=== PATIENT | female | born 1935 | race Caucasian/White ===

== ENCOUNTER → 2017-03-28 14:25 | Outpatient (CLI) | payer MEDICARE, OTHER, SELFPAY ==
[2017-03-28 14:51] LABS: Basophils % 0.3 % (0.1-2.0); Eosinophils # 0.2 K/mm3 (0.0-0.4); Eosinophils % 2.5 % (0.1-12.0); Hematocrit 39.6 % (37.0-47.0); Hemoglobin 12.5 g/dL (12.2-16.2); Lymphocytes # 1.2 K/mm3 (0.7-4.5); Lymphocytes % 18.4 K/mm3 (10-50); Mean Corpuscular HGB Conc 31.6 g/dL (31.8-35.4); Mean Corpuscular Hemoglobin 31.1 pg (27.0-31.2); Mean Corpuscular Volume 98.3 fl (81-99); Mean Platelet Volume 7.8 fl (7.4-10.4); Monocytes # 0.3 K/mm3 (0.1-1.0); Monocytes % 5.3 % (1.7-9.3); Neutrophils # 4.8 K/mm3 (1.8-7.8); Neutrophils % 73.6 % (37.0-80.0); Platelet Count 243 K/mm3 (142-424); Red Blood Count 4.03 M/mm3 (4.20-5.40); Red Cell Distribution Width 14.4 % (11.5-17.5); White Blood Count 6.5 K/mm3 (4.8-10.8)
[2017-03-28 15:54] LABS: Albumin Level 2.8 gm/dL (3.4-5.0); Anion Gap 11.1 mEq/L (5-15); Blood Urea Nitrogen 52 mg/dL (7-18); Calcium 9.8 mg/dL (8.5-10.1); Carbon Dioxide 34 mmol/L (21.0-32.0); Chloride 103 mmol/L (98-107); Creatinine,Serum 2.69 mg/dL (0.55-1.02); Estimated Glomerular Filt Rate 17 ml/min (>60); GFR (African American) 21 ML/MIN (>60); Glucose 78 mg/dL (74-106); Phosphorous 4.8 mg/dL (2.4-4.9); Potassium 4.1 mmoL/L (3.5-5.1); Sodium 144 mmol/L (136-145)
== END ==
PROVIDERS: Visit Provider Internal Medicine Nephrology
DX: N18.4 Chronic kidney disease, stage 4 (severe) (principal)
CPT/HCPCS: 36415; 80069; 85025

== ENCOUNTER 2017-05-07 09:10 | Inpatient (IN) | payer MEDICARE, OTHER, SELFPAY ==
[2017-05-07] VITALS (7 sets, daily range): BP systolic 121–135; BP diastolic 68–88; PULSE 92–120; RESP 18–20; TEMP 36.7–37.1; O2SAT 89–100; BMI 27.3; BMI 24.7
--- NOTE | 2017-05-07 09:20 | XR_ITS ---
XR chest portable Ordering Physician: Manpreet Holden MD Patient Age: 82 years: Female HISTORY: ITS.REASON: shortness of air TECHNIQUE: AP portable upright chest COMPARISON :07/26/2016 portable upright chest FINDINGS Elevation right hemidiaphragm again noted. Nothing definitely acute. No focal pneumonia. Coarsening of central markings similar to previous studies likely reflects chronic bronchitis features. Minimal linear scarring or atelectasis towards the left upper lobe peripherally . Accentuation markings right base may reflect atelectasis minor scarring is seen similar to previous studies as well. The heart is normal in size no CHF. No vascular congestion. Calcified hilar nodes and mediastinal nodes reflecting old renal this disease. Old right clavicular fracture. Nonunion. Unchanged. Postsurgical changes at the left epigastric region. IMPRESSION: Stable chest nothing definitely acute . Chronic changes.
[2017-05-07 09:50] LABS: Basophils % 0.2 % (0.1-2.0); Eosinophils % 0.4 % (0.1-12.0); Hemoglobin 9.2 g/dL (12.2-16.2); Lymphocytes # 1.1 K/mm3 (0.7-4.5); Lymphocytes % 20.1 K/mm3 (10-50); Mean Corpuscular HGB Conc 30.7 g/dL (31.8-35.4); Mean Corpuscular Hemoglobin 32.3 pg (27.0-31.2); Mean Corpuscular Volume 105.4 fl (81-99); Mean Platelet Volume 7.6 fl (7.4-10.4); Monocytes # 0.2 K/mm3 (0.1-1.0); Monocytes % 3.5 % (1.7-9.3); Neutrophils # 4.1 K/mm3 (1.8-7.8); Neutrophils % 75.8 % (37.0-80.0); Platelet Count 267 K/mm3 (142-424); Red Blood Count 2.84 M/mm3 (4.20-5.40); Red Cell Distribution Width 15.6 % (11.5-17.5); White Blood Count 5.4 K/mm3 (4.8-10.8)
[2017-05-07 10:05] LABS: Lactic Acid 0.4 mmol/L (0.4-2.0)
[2017-05-07 10:18] LABS: Alanine Aminotransferase 20 U/L (12-78); Albumin Level 2.2 gm/dL (3.4-5.0); Albumin/Globulin Ratio 0.6 (1.1-1.8); Alkaline Phosphatase 89 U/L (46-116); Anion Gap 17.1 mEq/L (5-15); Aspartate Amino Transferase 23 U/L (15-37); Bilirubin,Total 0.3 mg/dL (0.2-1.0); Blood Urea Nitrogen 75 mg/dL (7-18); CKMB Relative Index 3.3 U/L (0-4.0); Calcium 7.8 mg/dL (8.5-10.1); Carbon Dioxide 22 mmol/L (21.0-32.0); Chloride 104 mmol/L (98-107); Creatine Kinase 66 U/L (26-192); Creatine Kinase MB 2.2 mg/ml (0.0-3.6); Creatinine Clearance Estimated 11 mL/min (0-300); Estimated Glomerular Filt Rate 11 ml/min (>60); GFR (African American) 13 ML/MIN (>60); Globulin 3.6 gm/dl (1.3-3.2); Glucose 127 mg/dL (74-106); Potassium 4.1 mmoL/L (3.5-5.1); Sodium 139 mmol/L (136-145); Total Protein,Serum 5.8 gm/dL (6.4-8.2)
[2017-05-07 10:20] LABS: Creatinine,Serum 4.03 mg/dL (0.55-1.02); Troponin I 2.16 ng/ml (0.00-0.06)
--- NOTE | 2017-05-07 10:26 | HMH.EDSOB ---
ED Disposition Clinical Impression: Pneumonia, NSTEMI (non-ST elevated myocardial infarction), Renal insufficiency, Congestive heart failure, DNR (do not resuscitate) discussion Disposition: Still a Patient Condition on Discharge: Fair Referrals: Provider,Referral, [Primary Care Provider] - - Critical Care Critical Care Time: No Attestation: On 05/07/17, the high probability of a clinically significant, sudden or life threatening deterioration of the following system(s) required my full and direct attention, intervention and personal management. The time I documented below is in addition to time spent performing reported procedures but includes the following listed in this critical care notation. Medical Decision Making - Medical Records Medical records reviewed: Yes: I reviewed the patient's medical records. Vital Signs: 05/07/17 09:11 05/07/17 09:20 Temperature 98.3 F Temperature Source Oral Pulse Rate 112 H Respiratory Rate 18 Blood Pressure [Right Arm] 123/76 Blood Pressure Mean [Right Arm] 91 Blood Pressure Source [Right Arm] Automatic Cuff Blood Pressure Position [Right Arm] Supine 02 Sat by Pulse Oximetry 99 89 L Oxygen Delivery Method Room Air Room Air - Lab Data Lab results reviewed: Yes: I reviewed the patient's lab results. Lab Results 05/07/17 09:42: WBC 5.4, RBC 2.84 L, Hgb 9.2 L, Hct 30.0 L, MCV 105.4 H, MCH 32.3 H, MCHC 30.7 L, RDW 15.6, Plt Count 267, MPV 7.6, Neut % (Auto) 75.8, Lymph % (Auto) 20.1, [place] % (Auto) 3.5, Eos % (Auto) 0.4, Baso % (Auto) 0.2, Neut # (Auto) 4.1, Lymph # (Auto) 1.1, [place] # (Auto) 0.2, Eos # (Auto) 0.0, Baso # (Auto) 0.0 05/07/17 09:42: Sodium 139, Potassium 4.1, Chloride 104, Carbon Dioxide 22, Anion Gap 17.1 H, BUN 75 H, Creatinine 4.03 H, Estimated Creat Clear 11, Estimated GFR 11 L*, Est GFR ( Amer) 13 L*, Glucose 127 H, Calcium 7.8 L, Total Bilirubin 0.3, AST 23, ALT 20, Alkaline Phosphatase 89, Total Creatine Kinase 66, CK-MB (CK-2) 2.2, CK-MB (CK-2) Rel Index 3.3, Troponin I 2.16 H, Total Protein 5.8 L, Albumin 2.2 L, Globulin 3.6 H, Albumin/Globulin Ratio 0.6 L 05/07/17 09:42: B-Natriuretic Peptide 1970 H 05/07/17 09:42: Lactic Acid 0.4 Result diagrams: 05/07/17 09:42 05/07/17 09:42 Orders (Tests/Meds): ORDERS Category Date Time Status XR chest portable Stat Exams 05/07/17 09:20 Taken Blood Culture Stat Micro 05/07/17 09:55 Received - Radiology Data #1 Image(s): Chest Image Reviewed: Yes I reviewed the patient's radiology image Preliminary Findings: Abnormal RLL and lingual infitrates. no PVC, or plmonary edema. - ECG Data Tracing #1 sinus tachycardia 104 with t wave inersion in the antyerior leads suggestive of ischemia. ECG initial impression date: 05/07/17 ECG initial impression time: 10:49 - Lucas Inquiry Pt receiving controlled substance: No Lucas was queried for this patient: No Medical Decision Making Narrative: I had a full dislocuere of her her abnormal labx and CXR to [facility] who opted for medical managment and DNR stautus. Is p[katie with Dr Quintana who accepted to admit. I spoke with Dr Hart who did not see STEMI and advised for admission and IVF Resp/SOB HPI - General Chief Complaint: Upper Respiratory Infection Stated Complaint: congestion Mode of Arrival: EMS Limitations: No Limitations Description of Symptoms (Recalled from ER Triage Doc. by RN): coughcongestion - History of Present Illness 82 yrs old WF with diabetic complications. per her , 2 days ago she developed an upper rspiratory infection in the form of cough productive of whit sputum. they called Dr Garcia who advised to give her mucinex, she did not eat or drink and she is getting worse soa, cough and diaphoresis and felt warm. she was brought for evaluation. MD Complaint: shortness of breath, cough Onset (ago): day(s) (2 days.) Severity: moderate Consistency/Duration: constant
--- NOTE | 2017-05-07 10:31 | ED_ITS ---
ED Disposition Clinical Impression: Pneumonia, NSTEMI (non-ST elevated myocardial infarction), Renal insufficiency , Congestive heart failure, DNR (do not resuscitate) discussion Disposition: Still a Patient Condition on Discharge: Fair Referrals: Provider,Referral, [Primary Care Provider] - - Critical Care Critical Care Time: No Attestation: On 05/07/17, the high probability of a clinically significant, sudden or life threatening deterioration of the following system(s) required my full and direct attention, intervention and personal management. The time I documented below is in addition to time spent performing reported procedures but includes the following listed in this critical care notation. Medical Decision Making - Medical Records Medical records reviewed: Yes: I reviewed the patient's medical records. Vital Signs: 05/07/17 09:11 05/07/17 09:20 Temperature 98.3 F Temperature Source Oral Pulse Rate 112 H Respiratory Rate 18 Blood Pressure [Right Arm] 123/76 Blood Pressure Mean [Right Arm] 91 Blood Pressure Source [Right Arm] Automatic Cuff Blood Pressure Position [Right Arm] Supine 02 Sat by Pulse Oximetry 99 89 L Oxygen Delivery Method Room Air Room Air - Lab Data Lab results reviewed: Yes: I reviewed the patient's lab results. Lab Results 05/07/17 09:42: WBC 5.4, RBC 2.84 L, Hgb 9.2 L, Hct 30.0 L, MCV 105.4 H, MCH 32.3 H, MCHC 30.7 L, RDW 15.6, Plt Count 267, MPV 7.6, Neut % (Auto) 75.8, Lymph % (Auto) 20.1, [place] % (Auto) 3.5, Eos % (Auto) 0.4, Baso % (Auto) 0.2, Neut # (Auto) 4.1, Lymph # (Auto) 1.1, [place] # (Auto) 0.2, Eos # (Auto) 0.0, Baso # (Auto) 0.0 05/07/17 09:42: Sodium 139, Potassium 4.1, Chloride 104, Carbon Dioxide 22, Anion Gap 17.1 H, BUN 75 H, Creatinine 4.03 H, Estimated Creat Clear 11, Estimated GFR 11 L*, Est GFR ( Amer) 13 L*, Glucose 127 H, Calcium 7.8 L , Total Bilirubin 0.3, AST 23, ALT 20, Alkaline Phosphatase 89, Total Creatine Kinase 66, CK-MB (CK-2) 2.2, CK-MB (CK-2) Rel Index 3.3, Troponin I 2.16 H, Total Protein 5.8 L, Albumin 2.2 L, Globulin 3.6 H, Albumin/Globulin Ratio 0.6 L 05/07/17 09:42: B-Natriuretic Peptide 1970 H 05/07/17 09:42: Lactic Acid 0.4 Result diagrams: 05/07/17 09:42 05/07/17 09:42 Orders (Tests/Meds): ORDERS Category Date Time Status XR chest portable Stat Exams 05/07/17 09:20 Taken Blood Culture Stat Micro 05/07/17 09:55 Received - Radiology Data #1 Image(s): Chest Image Reviewed: Yes I reviewed the patient's radiology image Preliminary Findings: Abnormal RLL and lingual infitrates. no PVC, or plmonary edema. - ECG Data Tracing #1 sinus tachycardia 104 with t wave inersion in the antyerior leads suggestive of ischemia. ECG initial impression date: 05/07/17 ECG initial impression time: 10:49 - Lucas Inquiry Pt receiving controlled substance: No Lucas was queried for this patient: No Medical Decision Making Narrative: I had a full dislocuere of her her abnormal labx and CXR to the [facility] who opted for medical managment and DNR stautus. Is p[katie with Dr Quintana who accepted to admit. I spoke with Dr Hart who did not see STEMI and advised for admission and IVF Resp/SOB HPI - General Chief Complaint: Upper Respiratory Infection Stated Complaint: congestion Mode of Arrival: EMS Limitations: No Limitations Descript
[2017-05-07 21:19] LABS: POC Glucose,Bedside 137 mg/dL (70-110)
[2017-05-08] VITALS (11 sets, daily range): BP systolic 113–149; BP diastolic 60–75; PULSE 90–170; RESP 18–24; TEMP 36.7–36.9; O2SAT 92–99; BMI 25.2
--- NOTE | 2017-05-08 00:23 | PC.NURSE ---
PT VERY AGITATED AND CONFUSED. ATTEMPTED TO TAKE 0000 VITAL SIGNS AND PT REFUSED. RN NOTIFIED, SHE TRIED TALKING TO PT WELL, AND STILL REFUSED. RN SAID NOT TO KEEP TRYING D/T PT AGITATION AND TO DOCUMENT REFUSAL. Danelle MORATAYA, SRNA
--- NOTE | 2017-05-08 00:34 | PC.NURSE ---
PT IS VERY AGITATED AND CONFUSED. ATTEMPTED TO TAKE 0000 VITAL SIGNS AND PT REFUSED. RN NOTIFIED AND SHE TRIED TO TALK TO PT AND GET VITAL SIGNS, BUT SHE STILL REFUSED. RN SAID SAID TO DOCUMENT REFUSAL, DO NOT KEEP TRYING TO TAKE VITALS D/T AGITATION. Danelle MORATAYA, SRNA
[2017-05-08 01:04] LABS: POC Glucose,Bedside 188 mg/dL (70-110)
--- NOTE | 2017-05-08 05:10 | PC.NURSE ---
0200 PT CHECK IS CHARTED UNDER 0300, D/T TIME CHANGE. Danelle MORATAYA, SRNA
[2017-05-08 06:22] LABS: POC Glucose,Bedside 105 mg/dL (70-110)
[2017-05-08 07:07] LABS: Basophils % 0.1 % (0.1-2.0); Eosinophils # 0.1 K/mm3 (0.0-0.4); Eosinophils % 1.4 % (0.1-12.0); Hemoglobin 8.3 g/dL (12.2-16.2); Lymphocytes # 0.8 K/mm3 (0.7-4.5); Lymphocytes % 15.1 K/mm3 (10-50); Mean Corpuscular HGB Conc 30.4 g/dL (31.8-35.4); Mean Corpuscular Hemoglobin 32.5 pg (27.0-31.2); Mean Corpuscular Volume 106.8 fl (81-99); Mean Platelet Volume 7.8 fl (7.4-10.4); Monocytes # 0.2 K/mm3 (0.1-1.0); Neutrophils # 4.4 K/mm3 (1.8-7.8); Neutrophils % 79.4 % (37.0-80.0); Platelet Count 251 K/mm3 (142-424); Red Blood Count 2.55 M/mm3 (4.20-5.40); Red Cell Distribution Width 15.4 % (11.5-17.5); White Blood Count 5.6 K/mm3 (4.8-10.8)
[2017-05-08 07:10] LABS: Hematocrit 27.2 % (37.0-47.0)
[2017-05-08 07:17] LABS: Anion Gap 13.7 mEq/L (5-15); Blood Urea Nitrogen 72 mg/dL (7-18); Carbon Dioxide 23 mmol/L (21.0-32.0); Chloride 104 mmol/L (98-107); Creatinine Clearance Estimated 14 mL/min (0-300); Estimated Glomerular Filt Rate 12 ml/min (>60); Glucose 107 mg/dL (74-106); Potassium 3.7 mmoL/L (3.5-5.1); Sodium 137 mmol/L (136-145)
[2017-05-08 07:18] LABS: Creatinine,Serum 3.65 mg/dL (0.55-1.02); GFR (African American) 14 ML/MIN (>60)
--- NOTE | 2017-05-08 09:05 | HMH.HP ---
*Admission Date: 05/07/17 *Chief complaint: Shortness of air *History of present illness: 82-year-old white female with dementia, pre-existing kidney disease and remote history of heart disease who was brought to the hospital because of shortness of air, coughing and some lethargy. Emergency department workup revealed acute kidney injury on top of her chronic creatinine elevation, also had elevated BNP levels and elevated troponins consistent with non-STEMI. Patient is not the best historian but apparently -who is not here this morning-told the emergency department she had complained of chest pain. Patient was admitted for non-STEMI and CHF exacerbation. Antibiotics were started in the ER with ceftriaxone and azithromycin-her chest x-ray report is clear and she has had no fever. [facility] History I have reviewed the patient's past medical history: Yes Medical History: Reports:: Arrhythmia, Congestive Heart Failure, Deep Vein Thrombosis, Diabetes Mellitus Type 2, Hyperlipidemia, Hypertension Denies:: Cancer, Diabetes Mellitus Type 1, MRSA Other Medical History: Reports: Anemia, Arthritis Other Surgeries: Yes: Appendectomy, Colonoscopy, EGD, Hysterectomy-Total Amputation: Yes Fractures: No - *Social History Educational Level: Completed High School Smoking Status: Never smoker Alcohol Intake: never Occupational Status: retired Housing: house Household Members: spouse - Psychiatric History Expresses thoughts of harming self/others: None Suicide Plan Description: No Plan *Family Hx:: Anemia, Diabetes, Hyperlipidemia, Hypertension, Kidney Disease Review of Systems - Review of Systems Review of systems:: unable to obtain, other, pertinent systems reviewed and negative unless documented below Patient somewhat of a fragmented historian, review of systems is negative except for shortness of air and some chest pains. She reports no GI, or musculoskeletal symptoms. Meds Home Medications Medication Instructions Recorded Confirmed Type Calcitriol [Calcitriol 0.25mcg 1 tab PO DIRECTED 05/07/17 05/07/17 History Capsule] Carvedilol [Carvedilol 12.5mg Tab] 1 tab PO DIRECTED 05/07/17 05/07/17 History Cilostazol [Pletal 100mg tablet] 1 % PO DIRECTED 05/07/17 05/07/17 History Furosemide [Furosemide 40MG tAB] 1 tab PO DIRECTED 05/07/17 05/07/17 History Gabapentin [Gabapentin 100mg Cap] 1 tab PO DIRECTED 05/07/17 05/07/17 History Insulin NPH Hum/Reg Insulin Hm 1 tab PO DIRECTED 05/07/17 05/07/17 History [Relion Novolin 70-30 Vial] Morphine Sulfate [MS Contin 30mg 1 tab PO DAILY 05/07/17 05/07/17 History EXTENDED RELEASE tablet] Warfarin Sodium [Jantoven] 1 tab PO DAILY 05/07/17 05/07/17 History hydrOXYzine HCl [Hydroxyzine HCl] 1 tab PO DIRECTED 05/07/17 05/07/17 History Allergies Allergy/AdvReac Type Severity Reaction Status Date / Time oxycodone [OXYCODONE] Allergy Severe S-DIFF. Verified 05/07/17 09:26 BREATHING ciprofloxacin [CIPROFLOXACIN] Allergy Intermediate I-RASH Verified 05/07/17 09:26 Penicillins [PENICILLINS] Allergy Intermediate I-RASH Verified 05/07/17 09:26 Quinolones [QUINOLONES] Allergy Intermediate I-RASH Verified 05/07/17 09:26 Sulfa (Sulfonamide Allergy Intermediate I-RASH Verified 05/07/17 09:26 Antibiotics) [SULFA (SULFONAMIDE ANTIBIOTICS)] sulfacetamide [SULFACETAMIDE] Allergy Intermediate I-RASH Verified 05/07/17 09:26 Exam Vital signs and Labs for Last 24 Hours: Temp Pulse Resp BP Pulse Ox 98.0 F 94 H 20 132/69 99 05/08/17 07:24 05/08/17 07:24 05/08/17 07:24 05/08/17 07:24 05/08/17 07:24 Laboratory Results - last 24 hr 05/07/17 17:00: POC Glucose 188 05/07/17 21:04: POC Glucose 137 05/08/17 06:13: POC Glucose 105 05/08/17 06:35: WBC 5.6, RBC 2.55 L, Hgb 8.3 L, Hct 27.2 L, MCV 106.8 H, MCH 32.5 H, MCHC 30.4 L, RDW 15.4, Plt Count 251, MPV 7.8, Neut % (Auto) 79.4, Lymph % (Auto) 15.1, [place] % (Auto) 4.0, Eos % (Auto) 1.4, Baso % (A
--- NOTE | 2017-05-08 09:08 | P.HP_ITS ---
*Admission Date: 05/07/17 *Chief complaint: Shortness of air *History of present illness: 82-year-old white female with dementia, pre-existing kidney disease and remote history of heart disease who was brought to the hospital because of shortness of air, coughing and some lethargy. Emergency department workup revealed acute kidney injury on top of her chronic creatinine elevation, also had elevated BNP levels and elevated troponins consistent with non-STEMI. Patient is not the best historian but apparently -who is not here this morning-told the emergency department she had complained of chest pain. Patient was admitted for non-STEMI and CHF exacerbation. Antibiotics were started in the ER with ceftriaxone and azithromycin-her chest x -ray report is clear and she has had no fever. [facility] History I have reviewed the patient's past medical history: Yes Medical History: Reports:: Arrhythmia, Congestive Heart Failure, Deep Vein Thrombosis, Diabetes Mellitus Type 2, Hyperlipidemia, Hypertension Denies:: Cancer, Diabetes Mellitus Type 1, MRSA Other Medical History: Reports: Anemia, Arthritis Other Surgeries: Yes: Appendectomy, Colonoscopy, EGD, Hysterectomy-Total Amputation: Yes Fractures: No - *Social History Educational Level: Completed High School Smoking Status: Never smoker Alcohol Intake: never Occupational Status: retired Housing: house Household Members: spouse - Psychiatric History Expresses thoughts of harming self/others: None Suicide Plan Description: No Plan *Family Hx:: Anemia, Diabetes, Hyperlipidemia, Hypertension, Kidney Disease Review of Systems - Review of Systems Review of systems:: unable to obtain, other, pertinent systems reviewed and negative unless documented below Patient somewhat of a fragmented historian, review of systems is negative except for shortness of air and some chest pains. She reports no GI, or musculoskeletal symptoms. Meds Home Medications Medication Instructions Recorded Confirmed Type Calcitriol [Calcitriol 0.25mcg 1 tab PO DIRECTED 05/07/17 05/07/17 History Capsule] Carvedilol [Carvedilol 12.5mg Tab] 1 tab PO DIRECTED 05/07/17 05/07/17 History Cilostazol [Pletal 100mg tablet] 1 % PO DIRECTED 05/07/17 05/07/17 History Furosemide [Furosemide 40MG tAB] 1 tab PO DIRECTED 05/07/17 05/07/17 History Gabapentin [Gabapentin 100mg Cap] 1 tab PO DIRECTED 05/07/17 05/07/17 History Insulin NPH Hum/Reg Insulin Hm 1 tab PO DIRECTED 05/07/17 05/07/17 History [Relion Novolin 70-30 Vial] Morphine Sulfate [MS Contin 30mg 1 tab PO DAILY 05/07/17 05/07/17 History EXTENDED RELEASE tablet] Warfarin Sodium [Jantoven] 1 tab PO DAILY 05/07/17 05/07/17 History hydrOXYzine HCl [Hydroxyzine HCl] 1 tab PO DIRECTED 05/07/17 05/07/17 History Allergies Allergy/AdvReac Type Severity Reaction Status Date / Time oxycodone [OXYCODONE] Allergy Severe S-DIFF. Verified 05/07/17 09:26 BREATHING ciprofloxacin [CIPROFLOXACIN] Allergy Intermediate I-RASH Verified 05/07/17 09: 26 Penicillins [PENICILLINS] Allergy Intermediate I-RASH Verified 05/07/17 09:26 Quinolones [QUINOLONES] Allergy Intermediate I-RASH Verified 05/07/17 09:26 Sulfa (Sulfonamide Allergy Intermediate I-RASH Verified 05/07/17 09:26 Antibiotics) [SULFA (SULFONAMIDE ANTIBIOTICS)] sulfacetamide [SULFACETAMIDE] Allergy Intermediate I-RASH Verified 05/07/17 09: 26 Exam V
--- NOTE | 2017-05-08 10:52 | P.CONPHA_ITS ---
[facility] Pharmacy VTE Monitoring - Patient Demographics Admission date: 05/07/17 Report Date: 05/08/17 Time: 10:52 Allergies/Adverse Reactions: Patient Allergies oxycodone [OXYCODONE] Allergy (Severe, Verified 05/07/17 09:26) S-DIFF. BREATHING ciprofloxacin [CIPROFLOXACIN] Allergy (Intermediate, Verified 05/07/17 09:26) I-RASH Penicillins [PENICILLINS] Allergy (Intermediate, Verified 05/07/17 09:26) I-RASH Quinolones [QUINOLONES] Allergy (Intermediate, Verified 05/07/17 09:26) I-RASH Sulfa (Sulfonamide Antibiotics) [SULFA (SULFONAMIDE ANTIBIOTICS)] Allergy ( Intermediate, Verified 05/07/17 09:26) I-RASH sulfacetamide [SULFACETAMIDE] Allergy (Intermediate, Verified 05/07/17 09:26) I-RASH Height: 1.68 m Weight: 71.214 kg Patient Problems: Current Active Problems Pneumonia (Acute) NSTEMI (non-ST elevated myocardial infarction) (Acute) Renal insufficiency (Acute) Congestive heart failure (Acute) DNR (do not resuscitate) discussion (Acute) Acute kidney injury (Acute) - VTE Risk Labs: VTE Related Lab Results Hgb 8.3 g/dL (12.2-16.2) L 05/08/17 06:35 Hct 27.2 % (37.0-47.0) L 05/08/17 06:35 Plt Count 251 K/mm3 (142-424) 05/08/17 06:35 BUN 72 mg/dL (7-18) H 05/08/17 06:35 Creatinine 3.65 mg/dL (0.55-1.02) H 05/08/17 06:35 Estimated Creat Clear 14 mL/min (0-300) 05/08/17 06:35 VTE Score: 5 VTE Risk Level: Low Risk - Prophylaxis VTE Prophylaxis Ordered?: Yes Types of VTE Prophylaxis: Pharmacological Pharmacologic Type: Enoxaparin
[2017-05-08 11:33] LABS: POC Glucose,Bedside 129 mg/dL (70-110)
[2017-05-08 12:26] LABS: INR 1.65 (0.9-1.1); Prothrombin Time 17.9 seconds (9.4-11.8)
[2017-05-08 16:40] LABS: POC Glucose,Bedside 199 mg/dL (70-110)
--- NOTE | 2017-05-08 19:18 | PC.NURSE ---
[id number] GIVEN TO SEBAS BRICE
--- NOTE | 2017-05-08 19:47 | PC.NURSE ---
rn aware of all vital signs
[2017-05-08 21:04] LABS: POC Glucose,Bedside 156 mg/dL (70-110)
[2017-05-09] VITALS (15 sets, daily range): BP systolic 135–161; BP diastolic 61–85; PULSE 79–110; RESP 18–20; TEMP 35.8–37.1; O2SAT 91–100
--- NOTE | 2017-05-09 06:12 | CA_ITS ---
PROCEDURE: 2-D M-mode and color Doppler study INDICATIONS FOR THE TEST: Chest pain+ COPD Heart Murmur Tobacco Smoking Palpitations Fatigue Syncope Edema Hypertension+Diabetes Mellitus+ Rheumatic Fever SOB+CLAROS Obesity Hyperlipidemia+ Family History HD Additional History RENAL FAILURE PATIENT INFORMATION HEIGHT: WEIGHT: GENDER: Female B/P: 2-D/M-MODE INTERPRETATION: 2-D MEASUREMENTS OBSERVED VALUES IN CMS Right Ventricular Dimension (RVDd) Interventricular Septum (Thickness)(IVsd) Left Ventricular Internal Dimensions(LVIDd) Left Ventricular Posterior Wall (Thickness)(LVPWd) Aortic Root Aortic Cusp Separation Left Atrial Dimensions (LAD) 2D 1. Technically difficult and portable study because of the patient's factor and poor acoustic windows, M-mode dimensions are off axis hence not mentioned. 2. The left atrium is mildly enlarged, left ventricle is normal size, there is mild concentric left ventricular hypertrophy, visually estimated ejection fraction approximately 40%, there appears to moderate hypokinesis involving the basal septum and inferior wall. 3. The right atrium and right ventricle are mildly enlarged with normal contractility. 4. The aortic valve is thickened and calcified, with severe restriction the leaflet mobility. 5. The mitral valve leaflets are thickened and calcified with restriction the leaflet mobility. 6. The tricuspid valve leaflets are minimally thickened. 7. The pulmonic valve is poorly visualized. 8. No significant pericardial effusion noted. DOPPLER INTERROGATION: 1. The aortic outflow velocities 3.1 m/s, resulting in a mean gradient across valve of 18 mmHg, this represents mild aortic stenosis, however morphologically there is severe aortic stenosis ,there is no significant aortic insufficiency seen. 2. There is mitral stenosis present which is not well defined with this study, a repeat study with better Doppler technique is recommended. 3. There is moderate to severe tricuspid regurgitation noted, calculated right ventricular systolic pressure is 67 mmHg consistent with moderate pulmonary hypertension. CONCLUSION: 1. Technically difficult and portable study because of the patient's factor and poor acoustic windows. Doppler interrogation is inadequate. 2. Normal left ventricular size, mild concentric left ventricular hypertrophy, visually estimated ejection fraction 40 with multiple segmental wall motion abnormality described above. 3. Thickened and calcified aortic valve morphologically there is severe aorti
[2017-05-09 06:46] LABS: Basophils % 0.4 % (0.1-2.0); Eosinophils # 0.1 K/mm3 (0.0-0.4); Eosinophils % 2.9 % (0.1-12.0); Hematocrit 26.6 % (37.0-47.0); Hemoglobin 8.4 g/dL (12.2-16.2); Lymphocytes # 0.9 K/mm3 (0.7-4.5); Lymphocytes % 27.6 K/mm3 (10-50); Mean Corpuscular HGB Conc 31.7 g/dL (31.8-35.4); Mean Corpuscular Volume 104.2 fl (81-99); Mean Platelet Volume 8.3 fl (7.4-10.4); Monocytes # 0.2 K/mm3 (0.1-1.0); Monocytes % 7.1 % (1.7-9.3); Neutrophils # 2.1 K/mm3 (1.8-7.8); Platelet Count 225 K/mm3 (142-424); Red Blood Count 2.55 M/mm3 (4.20-5.40); Red Cell Distribution Width 15.4 % (11.5-17.5); White Blood Count 3.3 K/mm3 (4.8-10.8)
[2017-05-09 06:47] LABS: POC Glucose,Bedside 105 mg/dL (70-110)
[2017-05-09 06:56] LABS: Anion Gap 14.7 mEq/L (5-15); Blood Urea Nitrogen 71 mg/dL (7-18); Carbon Dioxide 23 mmol/L (21.0-32.0); Chloride 105 mmol/L (98-107); Creatinine Clearance Estimated 14 mL/min (0-300); Creatinine,Serum 3.44 mg/dL (0.55-1.02); Estimated Glomerular Filt Rate 13 ml/min (>60); GFR (African American) 16 ML/MIN (>60); Glucose 102 mg/dL (74-106); Potassium 3.7 mmoL/L (3.5-5.1); Sodium 139 mmol/L (136-145)
--- NOTE | 2017-05-09 07:08 | HMH.ACPN2 ---
Internal Medicine - PN: Subj *Date: 05/09/17 *Time: 07:08 Interval history: Patient complains of being short of breath this morning. She denies chest pain. She denies any history of coronary artery disease. She does have a history of peripheral arterial disease status post bilateral lower extremity amputations. 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 Exam Vital signs and Labs for Last 24 Hours: Temp Pulse Resp BP Pulse Ox 98.4 F 100 H 20 149/73 98 05/09/17 03:45 05/09/17 05:56 05/09/17 03:45 05/09/17 03:45 05/09/17 05:56 Laboratory Results - last 24 hr 05/08/17 06:35: WBC 5.6, RBC 2.55 L, Hgb 8.3 L, Hct 27.2 L, MCV 106.8 H, MCH 32.5 H, MCHC 30.4 L, RDW 15.4, Plt Count 251, MPV 7.8, Neut % (Auto) 79.4, Lymph % (Auto) 15.1, [place] % (Auto) 4.0, Eos % (Auto) 1.4, Baso % (Auto) 0.1, Neut # (Auto) 4.4, Lymph # (Auto) 0.8, [place] # (Auto) 0.2, Eos # (Auto) 0.1, Baso # (Auto) 0.0 05/08/17 06:35: Sodium 137, Potassium 3.7, Chloride 104, Carbon Dioxide 23, Anion Gap 13.7, BUN 72 H, Creatinine 3.65 H, Estimated Creat Clear 14, Estimated GFR 12 L*, Est GFR ( Amer) 14 L*, Glucose 107 H 05/08/17 11:25: POC Glucose 129 05/08/17 12:00: PT 17.9 H, INR 1.65 H 05/08/17 16:32: POC Glucose 199 05/08/17 20:52: POC Glucose 156 05/09/17 06:25: WBC 3.3 L D, RBC 2.55 L, Hgb 8.4 L, Hct 26.6 L, MCV 104.2 H, MCH 33.0 H, MCHC 31.7 L, RDW 15.4, Plt Count 225, MPV 8.3, Neut % (Auto) 62.0, Lymph % (Auto) 27.6, [place] % (Auto) 7.1, Eos % (Auto) 2.9, Baso % (Auto) 0.4, Neut # (Auto) 2.1, Lymph # (Auto) 0.9, [place] # (Auto) 0.2, Eos # (Auto) 0.1, Baso # (Auto) 0.0 05/09/17 06:25: Sodium 139, Potassium 3.7, Chloride 105, Carbon Dioxide 23, Anion Gap 14.7, BUN 71 H, Creatinine 3.44 H, Estimated Creat Clear 14, Estimated GFR 13 L*, Est GFR ( Amer) 16 L*, Glucose 102 05/09/17 06:39: POC Glucose 105 I & O for Last 24 hours: Intake & Output 05/06/17 05/07/17 05/08/17 05/09/17 10:59 10:59 11:59 11:59 Intake Total 1000 / 1000 Output Total 1150 / 1150 Balance -150 / -150 Weight 155 lb 3 oz Narrative: She is an awake and alert elderly female. Lungs have left basilar rales. Heart has a regular rate and rhythm. Abdomen is soft. She is in negative fluid balance over the last 24 hours. Creatinine has improved since admission. Baseline creatinine in February was 2.7 Assessment and Plan (1) Acute kidney injury Current visit: Yes Status: Acute Category: Medical Code(s): N17.9 - Acute kidney failure, unspecified (2) Congestive heart failure Current visit: Yes Status: Acute Category: Medical Code(s): I50.9 - Heart failure, unspecified (3) NSTEMI (non-ST elevated myocardial infarction) Current visit: Yes Status: Acute Category: Medical Code(s): I21.4 - Non-ST elevation (NSTEMI) myocardial infarction - Assessment and plan all Dx Assessment and Plan for all problems:: Await cardiology evaluation this morning.
--- NOTE | 2017-05-09 08:28 | HMH.CNCARD ---
History of Present Illness Consult date: 05/09/17 Requesting physician: Osei Baron Consult reason: chest pain, shortness of breath Chief complaint: SOA Additional Medical History:: 1. Diabetes mellitus, treated for many years. A. Status post bilateral [id number] amputations B. Chronic kidney disease with history of creatinine running about 2.7 2. Acute on chronic renal disease his creatinine on admission of 4.0 and GFR around 12 3. Dementia 4. Hypertension 5. Hyperlipidemia 6. History of CVA, patient is on Coumadin therapy A. Possible history of arrhythmia 7. Questionable history of congestive heart failure History of present illness: 82-year-old white female with history of dementia, hypertension and long-standing diabetes admitted for shortness of breath with some question of chest pain. No family is present at this time. Patient knows she is in [place] at the hospital but does not know the year and on the president. She denies any chest pain at this time. She does have some shortness of breath. EKG shows no acute changes. Troponins are noted to be elevated but in the setting of creatinine of 4.0 on admission. Cardiology consulted for evaluation and recommendation. [facility] History Medical History: Reports:: Arrhythmia, Congestive Heart Failure, Deep Vein Thrombosis, Diabetes Mellitus Type 2, Hyperlipidemia, Hypertension Denies:: Cancer, Diabetes Mellitus Type 1, MRSA Other Medical History: Reports: Anemia, Arthritis Other Surgeries: Yes: Appendectomy, Colonoscopy, EGD, Hysterectomy-Total Amputation: Yes Fractures: No - *Social History Educational Level: Completed High School Smoking Status: Never smoker Alcohol Intake: never Occupational Status: retired Housing: house Household Members: spouse - Psychiatric History Expresses thoughts of harming self/others: None Suicide Plan Description: No Plan *Family Hx:: Anemia, Diabetes, Hyperlipidemia, Hypertension, Kidney Disease Meds Home Medications Medication Instructions Recorded Confirmed Type Calcitriol [Calcitriol 0.25mcg 0.25 mcg PO DAILY 05/07/17 05/08/17 History Capsule] Carvedilol [Carvedilol 12.5mg Tab] 12.5 mg PO BID 05/07/17 05/08/17 History Cilostazol [Pletal 100mg tablet] 100 mg PO BID 05/07/17 05/08/17 History Furosemide [Furosemide 40MG tAB] 40 mg PO BID 05/07/17 05/08/17 History Gabapentin [Gabapentin 100mg Cap] 100 mg PO BID 05/07/17 05/08/17 History Insulin NPH Hum/Reg Insulin Hm 8 units SQ BIDWM 05/07/17 05/08/17 History [Relion Novolin 70-30 Vial] Morphine Sulfate [MS Contin 30mg 30 mg PO BID 05/07/17 05/08/17 History EXTENDED RELEASE tablet] hydrOXYzine HCl [Hydroxyzine HCl] 100 mg PO QID 05/07/17 05/08/17 History Isosorbide Dinitrate 30 mg PO BID 05/08/17 05/08/17 History Trazodone HCl 100 mg PO HS 05/08/17 05/08/17 History Warfarin Sodium [Jantoven] 3 mg PO DAILY 05/08/17 05/08/17 History Allergies Allergy/AdvReac Type Severity Reaction Status Date / Time oxycodone [OXYCODONE] Allergy Severe S-DIFF. Verified 05/07/17 09:26 BREATHING ciprofloxacin [CIPROFLOXACIN] Allergy Intermediate I-RASH Verified 05/07/17 09:26 Penicillins [PENICILLINS] Allergy Intermediate I-RASH Verified 05/07/17 09:26 Quinolones [QUINOLONES] Allergy Intermediate I-RASH Verified 05/07/17 09:26 Sulfa (Sulfonamide Allergy Intermediate I-RASH Verified 05/07/17 09:26 Antibiotics) [SULFA (SULFONAMIDE ANTIBIOTICS)] sulfacetamide [SULFACETAMIDE] Allergy Intermediate I-RASH Verified 05/07/17 09:26 Review of Systems - *Cardiovascular Reports chest pain, Reports shortness of breath - *Respiratory Reports cough, Reports shortness of breath - *Gastrointestinal Denies abdominal pain Exam Vital signs and Labs for Last 24 Hours: Temp Pulse Resp BP Pulse Ox 97.6 F 79 20 153/61 96 05/09/17 08:00 05/09/17 08:00 05/09/17 08:00 05/09/17 08:00 05/09/17 08:00 Laboratory Results - last 24 hr 05/08/17
--- NOTE | 2017-05-09 08:31 | P.CONS_ITS ---
History of Present Illness Consult date: 05/09/17 Requesting physician: Osei Baron Consult reason: chest pain, shortness of breath Chief complaint: SOA Additional Medical History:: 1. Diabetes mellitus, treated for many years. A. Status post bilateral [id number] amputations B. Chronic kidney disease with history of creatinine running about 2.7 2. Acute on chronic renal disease his creatinine on admission of 4.0 and GFR around 12 3. Dementia 4. Hypertension 5. Hyperlipidemia 6. History of CVA, patient is on Coumadin therapy A. Possible history of arrhythmia 7. Questionable history of congestive heart failure History of present illness: 82-year-old white female with history of dementia, hypertension and long- standing diabetes admitted for shortness of breath with some question of chest pain. No family is present at this time. Patient knows she is in [place] at the hospital but does not know the year and on the president. She denies any chest pain at this time. She does have some shortness of breath. EKG shows no acute changes. Troponins are noted to be elevated but in the setting of creatinine of 4.0 on admission. Cardiology consulted for evaluation and recommendation. [facility] History Medical History: Reports:: Arrhythmia, Congestive Heart Failure, Deep Vein Thrombosis, Diabetes Mellitus Type 2, Hyperlipidemia, Hypertension Denies:: Cancer, Diabetes Mellitus Type 1, MRSA Other Medical History: Reports: Anemia, Arthritis Other Surgeries: Yes: Appendectomy, Colonoscopy, EGD, Hysterectomy-Total Amputation: Yes Fractures: No - *Social History Educational Level: Completed High School Smoking Status: Never smoker Alcohol Intake: never Occupational Status: retired Housing: house Household Members: spouse - Psychiatric History Expresses thoughts of harming self/others: None Suicide Plan Description: No Plan *Family Hx:: Anemia, Diabetes, Hyperlipidemia, Hypertension, Kidney Disease Meds Home Medications Medication Instructions Recorded Confirmed Type Calcitriol [Calcitriol 0.25mcg 0.25 mcg PO DAILY 05/07/17 05/08/17 History Capsule] Carvedilol [Carvedilol 12.5mg Tab] 12.5 mg PO BID 05/07/17 05/08/17 History Cilostazol [Pletal 100mg tablet] 100 mg PO BID 05/07/17 05/08/17 History Furosemide [Furosemide 40MG tAB] 40 mg PO BID 05/07/17 05/08/17 History Gabapentin [Gabapentin 100mg Cap] 100 mg PO BID 05/07/17 05/08/17 History Insulin NPH Hum/Reg Insulin Hm 8 units SQ BIDWM 05/07/17 05/08/17 History [Relion Novolin 70-30 Vial] Morphine Sulfate [MS Contin 30mg 30 mg PO BID 05/07/17 05/08/17 History EXTENDED RELEASE tablet] hydrOXYzine HCl [Hydroxyzine HCl] 100 mg PO QID 05/07/17 05/08/17 History Isosorbide Dinitrate 30 mg PO BID 05/08/17 05/08/17 History Trazodone HCl 100 mg PO HS 05/08/17 05/08/17 History Warfarin Sodium [Jantoven] 3 mg PO DAILY 05/08/17 05/08/17 History Allergies Allergy/AdvReac Type Severity Reaction Status Date / Time oxycodone [OXYCODONE] Allergy Severe S-DIFF. Verified 05/07/17 09:26 BREATHING ciprofloxacin [CIPROFLOXACIN] Allergy Intermediate I-RASH Verified 05/07/17 09: 26 Penicillins [PENICILLINS] Allergy Intermediate I-RASH Verified 05/07/17 09:26 Quinolones [QUINOLONES] Allergy Intermediate I-RASH Verified 05/07/17 09:26 Sulfa (Sulfonamide Allergy Intermediate I-RASH Verified 05/07/17 09:26 Antibiotics) [SULFA (SULFONAMIDE ANTIBIOTICS)]
[2017-05-09 12:40] LABS: POC Glucose,Bedside 145 mg/dL (70-110)
--- NOTE | 2017-05-09 14:58 | SW/DCPLANNER ---
RECEIVED A CALL FROM A NEIGHBOR OF THIS PATIENT STATING THIS PATIENT NEEDS SOME ASSISTANCE AT HOME ONCE SHE IS DISCHARGED.. NEIGHBOR STATED SHE HAS HOME HEALTH WITH ONE OF THE [facility]... AND I PROVIDED HER WITH A SITTERS LIST AND ENCOURAGED HER TO TALK TO THE [facility]AL [facility] TO SEE IF THEY CAN RECOMMEND OR ASSIST WITH SOMEONE LOCAL THAT CAN PROVIDE SOME CARE FOR PATIENT AND HER ... SHE MAY NEED TO BE TRANSFERRED BUT I TOLD HER IF THEY NEED ANY ADDITIONAL SERVICES TO LET ME KNOW...
--- NOTE | 2017-05-09 15:54 | PC.NURSE ---
Rhonchi noted to lungs. O2 sats in 90's on 2L NC. Pt denies chest pain this shift. She has been agitated and restless thus far. Picking and scratching herself to the point of bleeding and saturating gown with blood. Gown changed several times. Multiple scabs and excoriations noted to arms and chest. Family has been at bedside. Will continue to monitor.
[2017-05-09 16:51] LABS: POC Glucose,Bedside 188 mg/dL (70-110)
--- NOTE | 2017-05-09 17:12 | DIET.NUTRFU ---
Pt with fair appetite and PO intake of 75% avg at two recorded meals. Pt had no questions about current diabetic diet and declined education. Blood glucose running a little high with last recorded POC glucose of 188. Will continue to monitor.
--- NOTE | 2017-05-09 18:59 | PC.NURSE ---
Report to be given to Shireen Ahn RN
[2017-05-10] VITALS: PULSE 90
[2017-05-10 00:51] LABS: POC Glucose,Bedside 149 mg/dL (70-110)
[2017-05-10 04:00] VITALS: BP 141/65; PULSE 104; PULSE 110; RESP 18; TEMP 36.6; O2SAT 99
--- NOTE | 2017-05-10 05:45 | PC.NURSE ---
NO COMPLAINTS STATED. PT DID HAVE A BLOODY AREA NOTED ON L ARM AREA OF GOWN FROM PICKING AT A SCAB. STAFF INSTRUCTED PT TO NOT PICK/SCRATCH AT SCABS, APPLIED BAND AID ON L ARM, BATHED, AND APPLIED NEW GOWN. NO FURTHER PICKING/OPENED AREAS NOTED ON SKIN WAS NOTED. WEANED PT TO RA, TOLERATING WELL. SCATTERED WHEEZING NOTED PER LUNG AUSCULTATION. ESPINOZA CATHETER PATENT AND DRAINING CLOUDY/YELLOW URINE, MELY AREA CDI/NO S/S OF INFECTION NOTED. BILAT AKA NOTED. BELOW BREASTS NOTED RED, POWDER APPLIED. BUTTOCKS REDDENED, TURNED AND REPOSITIONED Q2H. VSS. WILL CONTINUE TO MONITOR.
[2017-05-10 05:56] VITALS: PULSE 68; PULSE 73
[2017-05-10 06:57] LABS: Basophils % 0.3 % (0.1-2.0); Eosinophils # 0.1 K/mm3 (0.0-0.4); Eosinophils % 2.3 % (0.1-12.0); Hematocrit 27.6 % (37.0-47.0); Hemoglobin 8.5 g/dL (12.2-16.2); Lymphocytes # 0.9 K/mm3 (0.7-4.5); Lymphocytes % 26.1 K/mm3 (10-50); Mean Corpuscular HGB Conc 30.7 g/dL (31.8-35.4); Mean Corpuscular Hemoglobin 31.9 pg (27.0-31.2); Mean Corpuscular Volume 103.8 fl (81-99); Mean Platelet Volume 7.5 fl (7.4-10.4); Monocytes # 0.2 K/mm3 (0.1-1.0); Monocytes % 5.8 % (1.7-9.3); Neutrophils # 2.3 K/mm3 (1.8-7.8); Neutrophils % 65.6 % (37.0-80.0); Platelet Count 250 K/mm3 (142-424); Red Blood Count 2.66 M/mm3 (4.20-5.40); Red Cell Distribution Width 15.3 % (11.5-17.5); White Blood Count 3.6 K/mm3 (4.8-10.8)
[2017-05-10 07:01] LABS: Anion Gap 14.7 mEq/L (5-15); Blood Urea Nitrogen 68 mg/dL (7-18); Carbon Dioxide 24 mmol/L (21.0-32.0); Chloride 106 mmol/L (98-107); Creatinine Clearance Estimated 16 mL/min (0-300); Creatinine,Serum 3.07 mg/dL (0.55-1.02); Estimated Glomerular Filt Rate 15 ml/min (>60); GFR (African American) 18 ML/MIN (>60); Glucose 118 mg/dL (74-106); Potassium 3.7 mmoL/L (3.5-5.1); Sodium 141 mmol/L (136-145)
[2017-05-10 07:10] LABS: INR 1.11 (0.9-1.1)
--- NOTE | 2017-05-10 07:12 | HMH.DCSUM ---
General - General Admission date: 05/07/17 Discharge date: 05/10/17 HPI HPI: 82-year-old white female with dementia, pre-existing kidney disease and remote history of heart disease who was brought to the hospital because of shortness of air, coughing and some lethargy. Emergency department workup revealed acute kidney injury on top of her chronic creatinine elevation, also had elevated BNP levels and elevated troponins consistent with non-STEMI. Patient is not the best historian but apparently -who is not here this morning-told the emergency department she had complained of chest pain. Patient was admitted for non-STEMI and CHF exacerbation. Antibiotics were started in the ER with ceftriaxone and azithromycin-her chest x-ray report is clear and she has had no fever. Hospital Course Hospital Course: She admitted for non-STEMI and acute congestive heart failure. She was placed on renal dosing of Lovenox on admission. She was initially given diuretics in the emergency department but these were held afterwards to avoid further kidney injury to her acute kidney injury on top of her chronic kidney disease. In regards to her non-ST elevation [place] cardiology was consulted and recommended conservative treatment with addition of aspirin. We will maximize carvedilol therapy. Patient will continue her warfarin. In regards to acute on chronic kidney disease patient's creatinine was greater than 4 on admission but trended down and was 3.4 at discharge. She follows with [facility] nephrology. Patient has a functional AV fistula for many years and when I brought up future plans for dialysis the patient tells me she has no intention of beginning dialysis at any point in the future. She was restarted on her home dosing of Lasix 1 day prior to discharge. She will continue this after discharge. Echocardiogram revealed an ejection fraction of 40% with aortic stenosis. Carvedilol therapy will be maximized. Patient developed oxygen requirement from her acute CHF but was able to be weaned to room air and maintain sats in the mid 90s on the day of discharge. On the patient requested discharge due to poor quality rest while hospitalized. Patient is an appropriate candidate for hospice but at this time declines. She will be discharged home. Follow-up in the office in 1 week. Objective Vital signs: Temp Pulse Resp BP Pulse Ox 97.9 F 73 18 141/65 99 05/10/17 04:00 05/10/17 05:56 05/10/17 04:00 05/10/17 04:00 05/10/17 04:00 Results Labs on day of discharge: Labs from last 24 hours 05/10/17 05/10/17 05/10/17 06:20 06:20 06:20 WBC 3.6 L RBC 2.66 L Hgb 8.5 L Hct 27.6 L MCV 103.8 H MCH 31.9 H MCHC 30.7 L RDW 15.3 Plt Count 250 MPV 7.5 Neut % (Auto) 65.6 Lymph % (Auto) 26.1 [place] % (Auto) 5.8 Eos % (Auto) 2.3 Baso % (Auto) 0.3 Neut # (Auto) 2.3 Lymph # (Auto) 0.9 [place] # (Auto) 0.2 Eos # (Auto) 0.1 Baso # (Auto) 0.0 PT 12.0 H INR 1.11 H Sodium 141 Potassium 3.7 Chloride 106 Carbon Dioxide 24 Anion Gap 14.7 BUN 68 H Creatinine 3.07 H Estimated Creat Clear 16 Estimated GFR 15 L* Est GFR ( Amer) 18 L* Glucose 118 H POC Glucose 05/09/17 05/09/17 05/09/17 21:16 16:26 12:16 WBC RBC Hgb Hct MCV MCH MCHC RDW Plt Count MPV Neut % (Auto) Lymph % (Auto) [place] % (Auto) Eos % (Auto) Baso % (Auto) Neut # (Auto) Lymph # (Auto) [place] # (Auto) Eos # (Auto) Baso # (Auto) PT INR Sodium Potassium Chloride Carbon Dioxide Anion Gap BUN Creatinine Estimated Creat Clear Estimated GFR Est GFR ( Amer) Glucose POC Glucose 149 188 145 DS: Diagnosis - Discharge Diagnosis (1) Acute kidney injury Status: Acute (2) Congestive heart
--- NOTE | 2017-05-10 07:16 | P.DS_ITS ---
General - General Admission date: 05/07/17 Discharge date: 05/10/17 HPI HPI: 82-year-old white female with dementia, pre-existing kidney disease and remote history of heart disease who was brought to the hospital because of shortness of air, coughing and some lethargy. Emergency department workup revealed acute kidney injury on top of her chronic creatinine elevation, also had elevated BNP levels and elevated troponins consistent with non-STEMI. Patient is not the best historian but apparently -who is not here this morning-told the emergency department she had complained of chest pain. Patient was admitted for non-STEMI and CHF exacerbation. Antibiotics were started in the ER with ceftriaxone and azithromycin-her chest x -ray report is clear and she has had no fever. Hospital Course Hospital Course: She admitted for non-STEMI and acute congestive heart failure. She was placed on renal dosing of Lovenox on admission. She was initially given diuretics in the emergency department but these were held afterwards to avoid further kidney injury to her acute kidney injury on top of her chronic kidney disease. In regards to her non-ST elevation [place] cardiology was consulted and recommended conservative treatment with addition of aspirin. We will maximize carvedilol therapy. Patient will continue her warfarin. In regards to acute on chronic kidney disease patient's creatinine was greater than 4 on admission but trended down and was 3.4 at discharge. She follows with [facility] nephrology. Patient has a functional AV fistula for many years and when I brought up future plans for dialysis the patient tells me she has no intention of beginning dialysis at any point in the future. She was restarted on her home dosing of Lasix 1 day prior to discharge. She will continue this after discharge. Echocardiogram revealed an ejection fraction of 40% with aortic stenosis. Carvedilol therapy will be maximized. Patient developed oxygen requirement from her acute CHF but was able to be weaned to room air and maintain sats in the mid 90s on the day of discharge. On the patient requested discharge due to poor quality rest while hospitalized. Patient is an appropriate candidate for hospice but at this time declines. She will be discharged home. Follow-up in the office in 1 week. Objective Vital signs: Temp Pulse Resp BP Pulse Ox 97.9 F 73 18 141/65 99 05/10/17 04:00 05/10/17 05:56 05/10/17 04:00 05/10/17 04:00 05/10/17 04:00 Results Labs on day of discharge: Labs from last 24 hours 05/10/17 05/10/17 05/10/17 06:20 06:20 06:20 WBC 3.6 L RBC 2.66 L Hgb 8.5 L Hct 27.6 L MCV 103.8 H MCH 31.9 H MCHC 30.7 L RDW 15.3 Plt Count 250 MPV 7.5 Neut % (Auto) 65.6 Lymph % (Auto) 26.1 [place] % (Auto) 5.8 Eos % (Auto) 2.3 Baso % (Auto) 0.3 Neut # (Auto) 2.3 Lymph # (Auto) 0.9 [place] # (Auto) 0.2 Eos # (Auto) 0.1 Baso # (Auto) 0.0 PT 12.0 H INR 1.11 H Sodium 141 Potassium 3.7 Chloride 106 Carbon Dioxide 24 Anion Gap 14.7 BUN 68 H Creatinine 3.07 H Estimated Creat Clear 16 Estimated GFR 15 L* Est GFR ( Amer) 18 L* Glu
--- NOTE | 2017-05-10 07:28 | PC.NURSE ---
REPORT GIVEN TO Nadege FELTON W/C
[2017-05-10 07:42] VITALS: BP 141/58; PULSE 119; RESP 20; TEMP 36.5; O2SAT 90
--- NOTE | 2017-05-10 07:48 | PC.NURSE ---
REPORT GIVEN TO VENKATA RN
--- NOTE | 2017-05-10 10:43 | SW/DCPLANNER ---
CALLED [facility] THIS MORNING TO LET THEM KNOW THAT [facility] IS DISCHARGING HOME TODAY....FAXED COURSE OF STAY TO THEM FOR CONTINUED CARE...A RESOURCE LIST AND SITTERS LIST WAS ALSO PROVIDED. DR HUFFMAN FELT THIS PATIENT WOULD BE A GOOD CANDIDATE FOR HOSPICE BUT SHE DECLINED AND WISHED TO CONTINUE HOME HEALTH SERVICES..
[2017-05-10 16:24] LABS: POC Glucose,Bedside 120 mg/dL (70-110)
== END 2017-05-10 09:15 | disposition home or self-care (01) | DRG 281 ==
LOC: ER 10:44 → 2ND 18:19
PROVIDERS: Internal Medicine Adolescent Medicine; Admitting Provider Emergency Medicine; Emergency Provider Emergency Medicine; PCP Family Medicine; Visit Provider Family Medicine
DX: N18.4 Chronic kidney disease, stage 4 (severe); I21.4 Non-ST elevation (NSTEMI) myocardial infarction; E11.22 Type 2 diabetes mellitus with diabetic chronic kidney disease; I50.9 Heart failure, unspecified; E86.0 Dehydration; Z79.4 Long term (current) use of insulin; I35.0 Nonrheumatic aortic (valve) stenosis; Z71.89 Other specified counseling; I25.2 Old myocardial infarction; Z89.612 Acquired absence of left leg above knee; Z89.611 Acquired absence of right leg above knee
CPT/HCPCS: 36415; 71045; 80048; 80053; 82550; 82553; 82962; 83605; 83880; 84484; 85025; 85610; 87040; 93005; 93306; 94640; 94761; 96365; 99281

== ENCOUNTER 2017-06-09 13:22 | Inpatient (IN) ==
--- NOTE | 2017-06-09 13:31 | Emergency Department Note ---
ED Disposition Clinical Impression: Dehydration, Pneumonia, Chronic renal failure, UTI (urinary tract infection), Altered mental status Disposition: Still a Patient Condition on Discharge: Fair Referrals: Osei Baron MD [Primary Care Provider] - - Critical Care Critical Care Time: No Attestation: On , the high probability of a clinically significant, sudden or life threatening deterioration of the following system(s) required my full and direct attention, intervention and personal management. The time I documented below is in addition to time spent performing reported procedures but includes the following listed in this critical care notation. Medical Decision Making - Medical Records Medical records reviewed: Yes: I reviewed the patient's medical records. - Lucas Inquiry Pt receiving controlled substance: No Lucas was queried for this patient: No Vital Signs: 06/09/17 13:26 Temperature 97.9 F Temperature Source Oral Pulse Rate [Left Radial] 82 Respiratory Rate 20 Blood Pressure [Right Arm] 138/73 Blood Pressure Mean [Right Arm] 94 Blood Pressure Source [Right Arm] Automatic Cuff Blood Pressure Position [Right Arm] Sitting 02 Sat by Pulse Oximetry 95 Oxygen Delivery Method Nasal Cannula Oxygen Flow Rate (LPM) 2 - Lab Data Lab Results 06/09/17 13:26: ABG pH 7.45, ABG pCO2 50.3 H, ABG pO2 79.7 L, ABG HCO3 34.5 H, ABG Total CO2 36.0 H, ABG O2 Saturation 96, ABG Base Excess 10.6 H 06/09/17 14:15: WBC 8.1, RBC 3.24 L, Hgb 9.9 L, Hct 32.8 L, MCV 101.1 H, MCH 30.5, MCHC 30.2 L, RDW 13.6, Plt Count 334, MPV 7.5, Neut % (Auto) 76.0, Lymph % (Auto) 16.2, [place] % (Auto) 4.6, Eos % (Auto) 2.9, Baso % (Auto) 0.4, Neut # ( Auto) 6.2, Lymph # (Auto) 1.3, [place] # (Auto) 0.4, Eos # (Auto) 0.2, Baso # (Auto ) 0.0 06/09/17 14:15: Sodium 141, Potassium 3.3 L, Chloride 100, Carbon Dioxide 36 H, Anion Gap 8.3, BUN 62 H, Creatinine 3.25 H, Estimated Creat Clear 15, Estimated GFR 14 L*, Est GFR ( Amer) 17 L*, Glucose 79, Calcium 9.1, Total Bilirubin 0.3, AST 14 L, ALT 6 L, Alkaline Phosphatase 77, Troponin I 0.06, Total Protein 6.6, Albumin 2.4 L, Globulin 4.2 H, Albumin/Globulin Ratio 0.6 L, Lipase 41 L 06/09/17 14:15: Lactic Acid 0.6 06/09/17 14:20: Urine Color Yellow, Urine Appearance Clear, Urine pH 5.5, Ur Specific [place] 1.010, Urine Protein 1+, Urine Glucose (UA) Negative, Urine Ketones Negative, Urine Blood 1+, Urine Nitrate Positive, Urine Bilirubin Negative, Urine Urobilinogen 0.2, Ur Leukocyte Esterase 2+ A, Urine RBC None, Urine WBC 20-50, Ur Squamous Epith Cells 20-50, Urine Bacteria 2+ Result diagrams: 06/09/17 14:15 06/09/17 14:15 Orders (Tests/Meds): ED MEDICATIONS Generic Name Dose Route Start Last Admin Trade Name Freq PRN Reason Stop Dose Admin Azithromycin 500 mg/ Sodium 250 mls @ 250 mls/hr 06/09/17 15:00 Chloride IV 06/23/17 14:59 Q24H JACQUIE Protocol Ceftriaxone Sodium 1 gm/ 50 mls @ 100 mls/hr 06/09/17 15:00 06/09/17 15:07 Sodium Chloride IV 06/23/17 14:59 100 mls/hr Q24H JACQUIE Administration Protocol Discontinued Medications Generic Name Dose Route Start Last Admin Trade Name Freq PRN Reason Stop Dose Admin Sodium Chloride 1,000 mls @ 999 mls/hr 06/09/17 13:30 06/09/17 14:22 Sod Chlor 0.9% 1000ml Bag IV 06/09/17 14:30 999 mls/hr .Q1H1M JACQUIE Administration ORDERS Category Date Time Status CT head/brain wo con Stat Cat Scan 06/09/17 15:03 Ordered Acetone, Serum (Rapid) Stat Lab 06/09/17 14:15 Received INR [Prothrombin Time INR] Stat Lab 06/09/17 14:15 Received Blood Culture Stat Micro 06/09/17 14:15 Received Sputum Culture & Gram Stain Stat Micro 06/09/17 14:59 Ordered Urine Culture Stat Micro 06/09/17 14:20 Received ABG [Arterial Blood Gas] Stat RT 06/09/17 13:26 Results EKG Request [ECG Request by /Shirley] Stat Y 06/09/17 13:31 Ordered - Radiology Data #1 Image(s): Chest Image Reviewed: Yes I reviewed the patient's radiology image, Yes I have reviewed radiologist's interpretation Preliminary Findings: Abnormal She has a picture pulmonary vascular congestion with patchy infiltrates. - ECG Data Tracing #1 Normal sinus rhythm 77/min, old Q-wave in anterior wall, no acute changes. stable since 2016. ECG initial impression date: 06/09/17 ECG initial impression time: 14:13 Medical Decision Narrative: I discussed with Dr. Baron her abnormal chest x-ray findings and abnormally urine analysis. She will benefit from IV fluids gentle rehydration and IV anti- and reassessment. I added a CT of the head prior to admission. Weakness HPI - General Stated complaint: Weakness Time Seen by Provider: 06/09/17 13:25 - History of Present Illness HPI Narrative: 82 years old white female with history of COPD, chronic renal failure, above-the -knee amputation and diabetes. She was sent from home due to lethargy, difficulty to sit stay awake and weakness. The patient is alert oriented to the place time and had and moves her extremities. She has no focal neurological deficit. MD Complaint: generalized weakness Onset (ago): unknown Duration: constant Location: generalized Relieving factors: none Exacerbating factors: none Associated symptoms: denies other symptoms - Related Data Home Medications Medication Instructions Recorded Confirmed Calcitriol [Calcitriol 0.25mcg 0.25 mcg PO DAILY 05/07/17 05/08/17 Capsule] Cilostazol [Pletal 100mg tablet] 100 mg PO BID 05/07/17 05/08/17 Furosemide [Furosemide 40MG tAB] 40 mg PO BID 05/07/17 05/08/17 Gabapentin [Gabapentin 100mg Cap] 100 mg PO BID 05/07/17 05/08/17 Insulin NPH Hum/Reg Insulin Hm 8 units SQ BIDWM 05/07/17 05/08/17 [Relion Novolin 70-30 Vial] Morphine Sulfate [MS Contin 30mg 30 mg PO BID 05/07/17 05/08/17 EXTENDED RELEASE tablet] hydrOXYzine HCl [Hydroxyzine HCl] 100 mg PO QID 05/07/17 05/08/17 Isosorbide Dinitrate 30 mg PO BID 05/08/17 05/08/17 Trazodone HCl 100 mg PO HS 05/08/17 05/08/17 Warfarin Sodium [Jantoven] 3 mg PO DAILY 05/08/17 05/08/17 Previous Rx's Medication Instructions Recorded Aspirin [Aspirin 81mg EC Tab] 81 mg PO DAILY #30 tablet. 05/10/17 Carvedilol [Carvedilol 25mg Tab] 25 mg PO BID #60 tab 05/10/17 Allergies Allergy/AdvReac Type Severity Reaction Status Date / Time oxycodone [OXYCODONE] Allergy Severe S-DIFF. Verified 05/07/17 09:26 BREATHING ciprofloxacin [CIPROFLOXACIN] Allergy Intermediate I-RASH Verified 05/07/17 09: 26 Penicillins [PENICILLINS] Allergy Intermediate I-RASH Verified 05/07/17 09:26 Quinolones [QUINOLONES] Allergy Intermediate I-RASH Verified 05/07/17 09:26 Sulfa (Sulfonamide Allergy Intermediate I-RASH Verified 05/07/17 09:26 Antibiotics) [SULFA (SULFONAMIDE ANTIBIOTICS)] sulfacetamide [SULFACETAMIDE] Allergy Intermediate I-RASH Verified 05/07/17 09: 26 [facility] History I have reviewed the patient's past medical history: Yes (I reviewed her past medical history EKGs and medication list. ) Medical History: Reports:: Arrhythmia, Congestive Heart Failure, Deep Vein Thrombosis, Diabetes Mellitus Type 2, Hyperlipidemia, Hypertension Denies:: Cancer, Diabetes Mellitus Type 1, MRSA Other Medical History: Reports: Anemia, Arthritis Other Surgeries: Yes: Appendectomy, Colonoscopy, EGD, Hysterectomy-Total Amputation: Yes Fractures: No - Social History Smoking Status: Never smoker Alcohol Intake: never Occupational Status: retired Housing: house Household Members: spouse Family Hx:: Anemia, Diabetes, Hyperlipidemia, Hypertension, Kidney Disease ROS Obtained: Yes All systems reviewed & no additional complaints Physical Exam - General General appearance: alert, in no apparent distress - Head Head exam: atraumatic, normocephalic, normal inspection - Eye Eye exam: Present: normal appearance, PERRL, EOMI - ENT ENT exam: Present: mucous membranes dry, other (She has a very dry oral mucosa. ) - Neck Neck exam: Present: normal inspection, full ROM, trachea midline. Absent: meningismus, lymphadenopathy - Chest Chest inspection: Present: normal inspection, symmetric chest wall rise. Absent : tenderness - Respiratory Respiratory exam: Present: normal lung sounds bilaterally. Absent: respiratory distress - Cardiovascular Cardiovascular exam: Present: regular rate, normal rhythm. Absent: JVD - Abdominal Exam Abdominal exam: Present: soft, normal bowel sounds. Absent: distention, tenderness, guarding - External exam: Present: normal external exam - Extremities Exam Extremities exam: Present: other (Above knee amputation but with normal clean stump.) - Back Exam Back exam: Present: normal inspection. Absent: tenderness - Neurological Exam Neurological exam: Present: alert, oriented X3, CN II-XII intact, reflexes normal - Psychiatric Psychiatric exam: Present: normal affect, normal mood - Skin Skin exam: Present: warm, dry, intact, normal color - Lymphatic Lymphatic Findings: no adenopathy
[2017-06-09 14:05] LABS: ABG Base Excess 10.6 mmol/L (-2.4-2.3); ABG HCO3 34.5 mmhg (22.0-26.0); ABG Oxygen Saturation 96 % (90-100); ABG PH 7.45 mmol/L (7.35-7.45); ABG PO2 79.7 mmhg (80-100)
[2017-06-09 14:06] LABS: Allen's Test ACCEPTABLE
[2017-06-09 14:07] LABS: ABG PCO2 50.3 mmhg (35.0-45.0)
[2017-06-09 14:25] LABS: Appearance,Urine CLEAR (Clear); Bilirubin,Urine Negative (Negative); Blood, Urine 1+ (Negative); Color,Urine YELLOW (Yellow); Glucose,Urine (UA) Negative (Negative); Ketones,Urine Negative (Negative); Leukocyte Esterase,Urine 2+ (Negative); Microscopic, Urine URINE MICROSCOPIC (MICROSCOPIC); PH,Urine 5.5 (5.0-8.5); Protein,Urine 1+ (Negative); Urobilinogen,Urine 0.2 EU/dl (0.2)
[2017-06-09 14:35] LABS: Basophils % 0.4 % (0.1-2.0); Eosinophils # 0.2 K/mm3 (0.0-0.4); Eosinophils % 2.9 % (0.1-12.0); Hematocrit 32.8 % (37.0-47.0); Hemoglobin 9.9 g/dL (12.2-16.2); Lymphocytes # 1.3 K/mm3 (0.7-4.5); Lymphocytes % 16.2 K/mm3 (10-50); Mean Corpuscular HGB Conc 30.2 g/dL (31.8-35.4); Mean Corpuscular Hemoglobin 30.5 pg (27.0-31.2); Mean Corpuscular Volume 101.1 fl (81-99); Mean Platelet Volume 7.5 fl (7.4-10.4); Monocytes # 0.4 K/mm3 (0.1-1.0); Monocytes % 4.6 % (1.7-9.3); Neutrophils # 6.2 K/mm3 (1.8-7.8); Platelet Count 334 K/mm3 (142-424); Red Blood Count 3.24 M/mm3 (4.20-5.40); Red Cell Distribution Width 13.6 % (11.5-17.5); White Blood Count 8.1 K/mm3 (4.8-10.8)
[2017-06-09 14:52] LABS: Albumin Level 2.4 gm/dL (3.4-5.0); Albumin/Globulin Ratio 0.6 (1.1-1.8); Anion Gap 8.3 mEq/L (5-15); Bilirubin,Total 0.3 mg/dL (0.2-1.0); Calcium 9.1 mg/dL (8.5-10.1); Globulin 4.2 gm/dl (1.3-3.2); Potassium 3.3 mmoL/L (3.5-5.1); Total Protein,Serum 6.6 gm/dL (6.4-8.2)
[2017-06-09 15:02] LABS: Bacteria,Urine 2+ /lpf; Squamous Epithelial Cell,Urine 20-50 #/hpf (0-5); WBC,Urine 20-50 #/hpf (0-3)
[2017-06-09 15:16] LABS: INR 1.06 (0.9-1.1); Prothrombin Time 11.5 seconds (9.4-11.8)
--- NOTE | 2017-06-09 17:16 | History & Physical Report ---
*Admission Date: 06/09/17 *Chief complaint: Malaise *History of present illness: 82-year-old female with end-stage renal disease, hypertension, vascular disease status post bilateral [id number] amputations presented to the hospital after being sent from home because of her caretakers concern about lethargy at home. Apparently for the last few days patient has been claiming she does not quite feel right and has had less energy than usual with difficulty staying awake and still focused on tasks. 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 Patient's appetite has been poor. She has a cough that is productive of sputum of unknown color. She denies fevers or chills. Workup in the emergency department revealed what appears to be pneumonia on chest x-ray and patient has been admitted for treatment of pneumonia. [facility] History Medical History: Reports:: Arrhythmia, Congestive Heart Failure, Deep Vein Thrombosis, Diabetes Mellitus Type 2, Hyperlipidemia, Hypertension Denies:: Cancer, Diabetes Mellitus Type 1, MRSA Other Medical History: Reports: Anemia, Arthritis Other Surgeries: Yes: Appendectomy, Colonoscopy, EGD, Hysterectomy-Total Amputation: Yes Fractures: No - *Social History Smoking Status: Never smoker Alcohol Intake: never Occupational Status: retired Housing: house Household Members: spouse - Psychiatric History Expresses thoughts of harming self/others: None Suicide Plan Description: No Plan *Family Hx:: Anemia, Diabetes, Hyperlipidemia, Hypertension, Kidney Disease Review of Systems - Review of Systems Review of systems:: pertinent systems reviewed and negative unless documented below Meds Home Medications Medication Instructions Recorded Confirmed Type Calcitriol [Calcitriol 0.25mcg 0.25 mcg PO DAILY 05/07/17 06/09/17 History Capsule] Cilostazol [Pletal 100mg tablet] 100 mg PO BID 05/07/17 06/09/17 History Gabapentin [Gabapentin 100mg Cap] 100 mg PO BID 05/07/17 06/09/17 History Insulin NPH Hum/Reg Insulin Hm 8 units SQ BIDWM 05/07/17 06/09/17 History [Relion Novolin 70-30 Vial] Morphine Sulfate [MS Contin 30mg 30 mg PO BID 05/07/17 06/09/17 History EXTENDED RELEASE tablet] Isosorbide Dinitrate 30 mg PO BID 05/08/17 06/09/17 History Trazodone HCl 100 mg PO HS 05/08/17 06/09/17 History Aspirin [Aspirin 81mg EC Tab] 81 mg PO DAILY 06/09/17 06/09/17 History Butalb/Acetaminophen/Caffeine 1 each PO Q4-6H PRN 06/09/17 06/09/17 History [Urrfjw-Ugcbahco-Hbpn 50-300-40] Carvedilol [Carvedilol 25mg Tab] 25 mg PO BID 06/09/17 06/09/17 History Polyethylene Glycol 3350 [Miralax 17 gm PO DAILY 06/09/17 06/09/17 History 17gm Packet] Allergies Allergy/AdvReac Type Severity Reaction Status Date / Time oxycodone [OXYCODONE] Allergy Severe S-DIFF. Verified 05/07/17 09:26 BREATHING ciprofloxacin [CIPROFLOXACIN] Allergy Intermediate I-RASH Verified 05/07/17 09: 26 Penicillins [PENICILLINS] Allergy Intermediate I-RASH Verified 05/07/17 09:26 Quinolones [QUINOLONES] Allergy Intermediate I-RASH Verified 05/07/17 09:26 Sulfa (Sulfonamide Allergy Intermediate I-RASH Verified 05/07/17 09:26 Antibiotics) [SULFA (SULFONAMIDE ANTIBIOTICS)] sulfacetamide [SULFACETAMIDE] Allergy Intermediate I-RASH Verified 05/07/17 09: 26 Exam Vital signs and Labs for Last 24 Hours: Temp Pulse Resp BP Pulse Ox 97.9 F 82 20 138/73 95 06/09/17 16:34 06/09/17 16:34 06/09/17 16:34 06/09/17 16:34 06/09/17 13:26 Narrative: Elderly female who appears sick resting comfortably in bed. Nasal cannula is in place. Oropharynx is dry. Neck is without lymphadenopathy. Lungs have diminished breath sounds both anteriorly and posteriorly and I do not hear any focal rales. Heart has a regular rate and rhythm. Abdomen is soft. Patient has an indwelling Lopez catheter. She has bilateral [id number]-[id number]-yfiw amputations. Assessment and Plan (1) Pneumonia Current visit: Yes Status: Acute Category: Medical Code(s): J18.9 - Pneumonia, unspecified organism (2) Altered mental status Current visit: Yes Status: Acute Category: Medical Code(s): R41.82 - Altered mental status, unspecified (3) Chronic renal failure Current visit: Yes Status: Acute Category: Medical Code(s): N18.9 - Chronic kidney disease, unspecified (4) Dehydration Current visit: Yes Status: Acute Category: Medical Code(s): E86.0 - Dehydration - Assessment and plan all Dx Assessment and Plan for all problems:: 1. Rocephin and azithromycin 2. Gentle fluid hydration 3. Home medications although I will hold her narcotics because of the change in mental status and lethargy 4. Patient is a DNR and we will respect those wishes
[2017-06-10 07:20] LABS: Anion Gap 9.1 mEq/L (5-15); Potassium 3.1 mmoL/L (3.5-5.1)
--- NOTE | 2017-06-10 07:32 | Progress Note ---
Internal Medicine - PN: Subj *Date: 06/10/17 *Time: 07:29 Interval history: Patient claims she is not doing well this morning but when asked for specifics complains primarily of pain in the tailbone. Nursing staff reports the patient' s skin is very irritated and excoriated in that area and a dressing has been applied. Patient denies significant cough this morning and denies being short of breath. She is no longer requiring supplemental oxygen. Exam Vital signs and Labs for Last 24 Hours: Temp Pulse Resp BP Pulse Ox 98.8 F 85 20 155/87 100 06/10/17 04:00 06/10/17 04:00 06/10/17 04:00 06/10/17 04:00 06/10/17 04:00 Laboratory Results - last 24 hr 06/09/17 17:46: POC Glucose 92 06/09/17 22:24: POC Glucose 110 06/10/17 06:35: Sodium 142, Potassium 3.1 L, Chloride 104, Carbon Dioxide 32, Anion Gap 9.1, BUN 55 H, Creatinine 2.95 H, Estimated Creat Clear 15, Estimated GFR 15 L*, Est GFR ( Amer) 19 L*, Glucose 89, Magnesium 1.7 06/10/17 06:48: POC Glucose 88 I & O for Last 24 hours: Intake & Output 06/07/17 06/08/17 06/09/17 06/10/17 11:59 11:59 11:59 11:59 Intake Total 556 / 556 Output Total 500 / 500 Balance 56 / 56 Weight 142 lb 4 oz Narrative: She appears comfortable. She awakens easily. Lung exam has rales in the right midlung heard anteriorly and laterally. Heart has a regular rate and rhythm with loud systolic murmur. Abdomen is soft and nontender. Skin exertion reveals sacral erythema with some excoriations that bleed when I remove the dressing. Assessment and Plan (1) Pneumonia Current visit: Yes Status: Acute Category: Medical Code(s): J18.9 - Pneumonia, unspecified organism (2) Altered mental status Current visit: Yes Status: Acute Category: Medical Code(s): R41.82 - Altered mental status, unspecified (3) Chronic renal failure Current visit: Yes Status: Acute Category: Medical Code(s): N18.9 - Chronic kidney disease, unspecified (4) Dehydration Current visit: Yes Status: Acute Category: Medical Code(s): E86.0 - Dehydration - Assessment and plan all Dx Assessment and Plan for all problems:: Continue IV antibiotics. Patient is beginning to show signs of improvement in regards to her pneumonia.
--- NOTE | 2017-06-10 07:45 | Pharmacy Consult Notes ---
[facility] Pharmacy VTE Monitoring - Patient Demographics Admission date: 06/09/17 Report Date: 06/10/17 Time: 07:45 Allergies/Adverse Reactions: Patient Allergies oxycodone [OXYCODONE] Allergy (Severe, Verified 05/07/17 09:26) S-DIFF. BREATHING ciprofloxacin [CIPROFLOXACIN] Allergy (Intermediate, Verified 05/07/17 09:26) I-RASH Penicillins [PENICILLINS] Allergy (Intermediate, Verified 05/07/17 09:26) I-RASH Quinolones [QUINOLONES] Allergy (Intermediate, Verified 05/07/17 09:26) I-RASH Sulfa (Sulfonamide Antibiotics) [SULFA (SULFONAMIDE ANTIBIOTICS)] Allergy ( Intermediate, Verified 05/07/17 09:26) I-RASH sulfacetamide [SULFACETAMIDE] Allergy (Intermediate, Verified 05/07/17 09:26) I-RASH Height: 1.68 m Weight: 64.524 kg Patient Problems: Current Active Problems Pneumonia (Acute) Dehydration (Acute) Chronic renal failure (Acute) UTI (urinary tract infection) (Acute) Altered mental status (Acute) - VTE Risk Labs: VTE Related Lab Results Hgb 9.9 g/dL (12.2-16.2) L 06/09/17 14:15 Hct 32.8 % (37.0-47.0) L 06/09/17 14:15 Plt Count 334 K/mm3 (142-424) 06/09/17 14:15 PT 11.5 seconds (9.4-11.8) 06/09/17 14:15 INR 1.06 (0.9-1.1) 06/09/17 14:15 BUN 55 mg/dL (7-18) H 06/10/17 06:35 Creatinine 2.95 mg/dL (0.55-1.02) H 06/10/17 06:35 Estimated Creat Clear 15 mL/min (0-300) 06/10/17 06:35 Was VTE Risk Assessment Performed: Yes VTE Score: 4 VTE Risk Level: Low Risk Clinical Trial Participant: No - Prophylaxis VTE Prophylaxis Ordered?: Yes Types of VTE Prophylaxis: TEDS Knee High Location of Applied Device: Not Applicable
[2017-06-10 08:11] LABS: Mean Corpuscular HGB Conc 30.7 g/dL (31.8-35.4); Mean Corpuscular Hemoglobin 29.9 pg (27.0-31.2); Mean Corpuscular Volume 97.7 fl (81-99); Mean Platelet Volume 8.3 fl (7.4-10.4); Platelet Count 299 K/mm3 (142-424); Red Blood Count 2.76 M/mm3 (4.20-5.40); Red Cell Distribution Width 13.4 % (11.5-17.5); White Blood Count 6.5 K/mm3 (4.8-10.8)
[2017-06-10 08:12] LABS: Basophils % 0.2 % (0.1-2.0); Eosinophils # 0.2 K/mm3 (0.0-0.4); Eosinophils % 3.4 % (0.1-12.0); Lymphocytes # 1.2 K/mm3 (0.7-4.5); Lymphocytes % 17.9 K/mm3 (10-50); Monocytes # 0.3 K/mm3 (0.1-1.0); Monocytes % 4.5 % (1.7-9.3); Neutrophils # 4.8 K/mm3 (1.8-7.8)
[2017-06-10 08:23] LABS: Hemoglobin 8.4 g/dL (12.2-16.2)
--- NOTE | 2017-06-11 07:25 | Discharge Summary ---
General - General Admission date: 06/09/17 Discharge date: 06/11/17 HPI HPI: 82-year-old female with end-stage renal disease, hypertension, vascular disease status post bilateral zaybb-cgc-jrhx amputations presented to the hospital after being sent from home because of her caretakers concern about lethargy at home. Apparently for the last few days patient has been claiming she does not quite feel right and has had less energy than usual with difficulty staying awake and still focused on tasks. 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 Patient's appetite has been poor. She has a cough that is productive of sputum of unknown color. She denies fevers or chills. Workup in the emergency department revealed what appears to be pneumonia on chest x-ray and patient has been admitted for treatment of pneumonia. Hospital Course Hospital Course: She was admitted and placed on gentle IV fluid hydration due to clinical dehydration and antibiotics for her pneumonia. Patient improved rather rapidly while hospitalized and by the afternoon of admission was already stating she was feeling better. Patient continued her improvement during hospitalization with improvement in dyspnea and her hydration status improved. On the patient requested discharge stating she felt well. Prior to discharge room air sats were documented to assess need for supplemental oxygen. Patient was discharged home on antibiotics Objective Vital signs: Temp Pulse Resp BP Pulse Ox 97.4 F L 84 20 162/68 99 06/11/17 04:00 06/11/17 04:00 06/11/17 04:00 06/11/17 04:00 06/11/17 04:00 Results Labs on day of discharge: Labs from last 24 hours 06/11/17 06/10/17 06/10/17 06:39 20:15 16:06 WBC RBC Hgb Hct MCV MCH MCHC RDW Plt Count MPV Neut % (Auto) Lymph % (Auto) [place] % (Auto) Eos % (Auto) Baso % (Auto) Neut # (Auto) Lymph # (Auto) [place] # (Auto) Eos # (Auto) Baso # (Auto) Sodium Potassium Chloride Carbon Dioxide Anion Gap BUN Creatinine Estimated Creat Clear Estimated GFR Est GFR ( Amer) Glucose POC Glucose 119 H 104 137 H Magnesium 06/10/17 06/10/17 06/10/17 11:12 06:35 06:35 WBC 6.5 RBC 2.76 L Hgb 8.4 L D Hct 27.0 L MCV 97.7 MCH 29.9 MCHC 30.7 L RDW 13.4 Plt Count 299 MPV 8.3 Neut % (Auto) 74.0 Lymph % (Auto) 17.9 [place] % (Auto) 4.5 Eos % (Auto) 3.4 Baso % (Auto) 0.2 Neut # (Auto) 4.8 Lymph # (Auto) 1.2 [place] # (Auto) 0.3 Eos # (Auto) 0.2 Baso # (Auto) 0.0 Sodium 142 Potassium 3.1 L Chloride 104 Carbon Dioxide 32 Anion Gap 9.1 BUN 55 H Creatinine 2.95 H Estimated Creat Clear 15 Estimated GFR 15 L* Est GFR ( Amer) 19 L* Glucose 89 POC Glucose 155 H Magnesium 1.7 DS: Diagnosis - Discharge Diagnosis (1) Pneumonia Status: Acute (2) Altered mental status Status: Acute (3) Chronic renal failure Status: Acute (4) Dehydration Status: Acute Discharge Plan - Patient Discharge Instructions ACTIVITY: Continue current activity DIET: continue same diet - Follow up Plan Follow up with: Shireen Garcia MD [Referring] - Disposition: Home Health Service Home Medications: Home Medications Medication Instructions Recorded Confirmed Type RX: Calcitriol [Calcitriol 0.25mcg 0.25 mcg PO DAILY 05/07/17 06/09/17 History Capsule] RX: Cilostazol [Pletal 100mg 100 mg PO BID 05/07/17 06/09/17 History tablet] RX: Gabapentin [Gabapentin 100mg 100 mg PO BID 05/07/17 06/09/17 History Cap] RX: Insulin NPH Hum/Reg Insulin Hm 8 units SQ BIDWM 05/07/17 06/09/17 History [Relion Novolin 70-30 Vial] RX: Morphine Sulfate [MS Contin 30 mg PO BID 05/07/17 06/09/17 History 30mg EXTENDED RELEASE tablet] RX: Isosorbide Dinitrate 30 mg PO BID 05/08/17 06/09/17 History Aspirin [Aspirin 81mg EC Tab] 81 mg PO DAILY 06/09/17 06/09/17 History Butalb/Acetaminophen/Caffeine 1 each PO Q4-6H PRN 06/09/17 06/09/17 History [Zrubxw-Fwrxbvjz-Hkxq 50-300-40] Polyethylene Glycol 3350 [Miralax 17 gm PO DAILY 06/09/17 06/09/17 History 17gm Packet] RX: Trazodone HCl 200 mg PO HS 06/09/17 06/10/17 History Carvedilol [Coreg 12.5mg 12.5 mg PO BID 06/10/17 06/10/17 History Tablet] RX: Furosemide [Furosemide 40MG 40 mg PO HS 06/10/17 06/10/17 History tAB] RX: Furosemide [Furosemide 40MG 80 mg PO DAILY 06/10/17 06/10/17 History tAB] Prescriptions/Medication Reconciliation: New RX: Azithromycin [Z-Kunal 250mg Tab] 250 mg PO UD DOSE PK #6 tab Continue RX: Morphine Sulfate [MS Contin 30mg EXTENDED RELEASE tablet] 30 mg PO BID RX: Insulin NPH Hum/Reg Insulin Hm [Relion Novolin 70-30 Vial] 8 units SQ BIDWM RX: Gabapentin [Gabapentin 100mg Cap] 100 mg PO BID RX: Cilostazol [Pletal 100mg tablet] 100 mg PO BID RX: Calcitriol [Calcitriol 0.25mcg Capsule] 0.25 mcg PO DAILY RX: Isosorbide Dinitrate 30 mg PO BID Butalb/Acetaminophen/Caffeine [Zykznr-Ervrtuhp-Gack 50-300-40] 1 each PO Q4- 6H PRN PRN Reason: pain Polyethylene Glycol 3350 [Miralax 17gm Packet] 17 gm PO DAILY RX: Trazodone HCl 200 mg PO HS Carvedilol [Coreg 12.5mg Tablet] 12.5 mg PO BID RX: Furosemide [Furosemide 40MG tAB] 40 mg PO HS Aspirin [Aspirin 81mg EC Tab] 81 mg PO DAILY RX: Furosemide [Furosemide 40MG tAB] 80 mg PO DAILY
[2017-06-11 08:39] VITALS: BP 153/63
== END 2017-06-11 10:30 | disposition home health service (06) ==
LOC: ER 13:22 → 2ND 15:28
PROVIDERS: ADMIT Family Medicine; ATTEND Family Medicine

== ENCOUNTER → 2017-06-27 11:47 | Outpatient (CLI) | payer MEDICARE, OTHER, SELFPAY ==
[2017-06-27 13:29] LABS: Microscopic, Urine URINE MICROSCOPIC (MICROSCOPIC)
[2017-06-27 13:44] LABS: Appearance,Urine CLOUDY (Clear); Bilirubin,Urine Negative (Negative); Blood, Urine 3+ (Negative); Color,Urine YELLOW (Yellow); Glucose,Urine (UA) Negative (Negative); Ketones,Urine Negative (Negative); Leukocyte Esterase,Urine 2+ (Negative); Nitrate,Urine Negative (Negative); PH,Urine 8.5 (5.0-8.5); Protein,Urine 2+ (Negative); Specific Gravity, Urine 1.015 (1.005-1.030); Urobilinogen,Urine 0.2 EU/dl (0.2)
[2017-06-27 13:50] LABS: Basophils % 0.3 % (0.1-2.0); Eosinophils # 0.3 K/mm3 (0.0-0.4); Eosinophils % 4.9 % (0.1-12.0); Hematocrit 33.8 % (37.0-47.0); Hemoglobin 10.5 g/dL (12.2-16.2); Lymphocytes # 1.4 K/mm3 (0.7-4.5); Lymphocytes % 25.1 K/mm3 (10-50); Mean Corpuscular Hemoglobin 30.5 pg (27.0-31.2); Mean Corpuscular Volume 98.3 fl (81-99); Mean Platelet Volume 7.8 fl (7.4-10.4); Monocytes # 0.3 K/mm3 (0.1-1.0); Monocytes % 5.3 % (1.7-9.3); Neutrophils # 3.6 K/mm3 (1.8-7.8); Neutrophils % 64.3 % (37.0-80.0); Platelet Count 272 K/mm3 (142-424); Red Blood Count 3.44 M/mm3 (4.20-5.40); Red Cell Distribution Width 13.4 % (11.5-17.5); White Blood Count 5.5 K/mm3 (4.8-10.8)
[2017-06-27 14:00] LABS: Bacteria,Urine Trace /lpf; Squamous Epithelial Cell,Urine Occasional #/hpf (0-5); WBC,Urine Occasional #/hpf (0-3)
[2017-06-27 15:12] LABS: Creatinine,Urine Random 52 mg/dL (20-320); Total Protein,Urine Random 147.3 mg/dL (0.0-11.9)
[2017-06-27 16:14] LABS: Albumin Level 2.9 gm/dL (3.4-5.0); Anion Gap 12.5 mEq/L (5-15); Calcium 9.4 mg/dL (8.5-10.1); Carbon Dioxide 33 mmol/L (21.0-32.0); Chloride 97 mmol/L (98-107); Potassium 3.5 mmoL/L (3.5-5.1); Sodium 139 mmol/L (136-145)
[2017-06-27 16:48] LABS: Blood Urea Nitrogen 70 mg/dL (7-18); Creatinine,Serum 3.49 mg/dL (0.55-1.02); Estimated Glomerular Filt Rate 13 ml/min (>60); GFR (African American) 15 ML/MIN (>60); Glucose 134 mg/dL (74-106); Phosphorous 5.7 mg/dL (2.4-4.9)
== END ==
PROVIDERS: Visit Provider Internal Medicine Nephrology
DX: N18.4 Chronic kidney disease, stage 4 (severe) (principal); R82.90 Unspecified abnormal findings in urine
CPT/HCPCS: 36415; 80069; 81001; 82570; 84155; 85025; 87086; 87088; 87186